=== PATIENT | male | born 1990 | race Caucasian/White ===

== ENCOUNTER 2023-12-24 13:08 | Inpatient (IN) | payer OTHER ==
[2023-12-24 13:51] VITALS: BMI 18.8
[2023-12-24] MEDS ORDERED: DICYCLOMINE HCL 10 MG CAPSULE PO PRN (15:43)
[2023-12-24] MEDS ORDERED: POLYETHYLENE GLYCOL (HEALTHYLAX) 3350 17 GM PACKET PO PRN (15:43)
[2023-12-24] MEDS ORDERED: MAG HYDROX/AL HYDROX/SIMETH 30 ML UNIT-DOSE CUP PO PRN (15:43)
[2023-12-24] MEDS ORDERED: ACETAMINOPHEN 325 MG TABLET (FP) PO PRN (15:43)
[2023-12-24] MEDS ORDERED: BENZOCAINE/MENTHOL (CHLORASEPTIC ) LOZENGE MM PRN (15:43)
[2023-12-24] MEDS ORDERED: MAGNESIUM HYDROX 2400MG/30ML ORAL SUSPENSION 30 ML CUP PO PRN (15:43)
[2023-12-24] MEDS ORDERED: NALOXONE (NARCAN) HCL 4 MG/0.1 ML SPRAY NS PRN (15:43)
[2023-12-24] MEDS ORDERED: BENZONATATE 200 MG CAPSULE PO PRN (15:43)
[2023-12-24] MEDS ORDERED: NALOXONE HCL 0.4 MG/ML VIAL IM PRN (15:43)
[2023-12-24] MEDS ORDERED: guaiFENesin 600 MG TABLET.ER (FP) PO PRN (15:43)
[2023-12-24] MEDS ORDERED: BISMUTH SUBSALICYLATE 524 MG/30 ML PO PRN (15:43)
[2023-12-24] MEDS ORDERED: ONDANSETRON *ODT* 4 MG TABLET SL PRN (15:43)
[2023-12-24] MEDS ORDERED: LOPERAMIDE HCL 2 MG CAPSULE PO PRN (15:43)
[2023-12-24] MEDS ORDERED: methaDONE HCL 10 MG TABLET PO PRN (17:43)
[2023-12-24] MEDS ORDERED: methaDONE HCL 10 MG TABLET (FOR DETOX USE ONLY) ONE (17:59)
[2023-12-24] MEDS: methaDONE HCL 10 MG TABLET PO ONE (18:02)
[2023-12-24] MEDS ORDERED: cloNIDine HCL 0.1 MG TABLET ONE (18:03)
[2023-12-24] MEDS: cloNIDine HCL 0.1 MG TABLET PO SCH (18:04)
[2023-12-25] MEDS: MELATONIN 5 MG TABLETS PO SCH (00:33)
[2023-12-25] MEDS: THIAMINE 100 MG TABLET PO SCH (00:33)
[2023-12-25] MEDS: PRENATAL VITAMINS W/ FOLIC ACID TABLET (FP) PO SCH (09:38)
[2023-12-25] MEDS: methaDONE 40 MG, methaDONE 10 MG PO ONE (09:38)
[2023-12-25 13:52] LABS: HEMATOCRIT 40.7 % (35.4-49); HEMOGLOBIN 13.8 GM/dL (11.7-16.9); MCH 30.8 pg (25.7-33.7); MEAN CELL VOLUME 90.6 fl (80-96); MEAN PLT VOLUME 6.6 fl (7.5-11.1); PLATELET COUNT 424 10^3/uL (134-434); RBC 4.49 M/mm3 (4.00-5.60); RDW 16.4 % (11.9-15.9); WHITE BLOOD COUNT 9.5 K/mm3 (4.0-10.0)
[2023-12-25 14:17] LABS: POTASSIUM 3.7 mmol/L (3.5-5.1)
[2023-12-25 14:19] LABS: CALCIUM 9.3 mg/dL (8.5-10.1)
[2023-12-25 14:20] LABS: ALBUMIN 3.6 g/dl (3.4-5.0)
[2023-12-25 14:23] LABS: CREATININE 0.7 mg/dL (0.55-1.3)
[2023-12-25 14:24] LABS: BILIRUBIN,TOTAL 0.6 mg/dL (0.2-1); TOT PROT 7.4 g/dl (6.4-8.2)
[2023-12-26] MEDS ORDERED: cloNIDine HCL 0.1 MG TABLET PO PRN
[2023-12-26] MEDS: methaDONE 40 MG, methaDONE 20 MG PO ONE (10:30)
[2023-12-26] MEDS: hydrOXYzine PAMOATE 25 MG CAPSULE (FP) PO PRN (10:31)
[2023-12-26] MEDS: IBUPROFEN 600 MG TABLET (FP) PO PRN (17:18)
[2023-12-26] MEDS: NICOTINE POLACRILEX 4 MG GUM BUC PRN (17:19)
[2023-12-27] MEDS: methaDONE 40 MG, methaDONE 30 MG PO ONE (09:17)
[2023-12-28] MEDS: methaDONE HCL 40 MG DISPERSABLE TABLET PO ONE (09:42)
[2023-12-29] MEDS: methaDONE 80 MG, methaDONE 10 MG PO ONE (09:58)
[2023-12-29] MEDS: METHOCARBAMOL 500 MG TABLET PO PRN (21:59)
[2023-12-30] MEDS: methaDONE 80 MG, methaDONE 10 MG PO ONE (08:57)
[2023-12-30] MEDS: IBUPROFEN 400 MG TABLET (FP) PO PRN (22:32)
[2023-12-31] MEDS: methaDONE 80 MG, methaDONE 10 MG PO ONE (11:28)
[2023-12-31 12:49] VITALS: BP 131/83; PULSE 74; RESP 16; TEMP 97.8
== END 2023-12-31 13:15 | disposition other institution (70) | DRG 773 ==
LOC: YASAS 13:08 → Y6N 17:48
PROVIDERS: ADMIT Allergy & Immunology; ATTEND Surgery
PROC: HZ2ZZZZ Detoxification Services for Substance Abuse Treatment (ICD-10-PCS; principal; 2023-12-24)
DX: F11.23 Opioid dependence with withdrawal (principal); F17.210 Nicotine dependence, cigarettes, uncomplicated; Z86.19 Personal history of other infectious and parasitic diseases; Z59.02 Unsheltered homelessness
CPT/HCPCS: 36415; 80053; 80305; 80307; 83036; 85027; 86593; 86780; 87811; 93005; 93010

== ENCOUNTER 2023-12-31 13:42 | Inpatient (IN) | payer OTHER ==
[2023-12-31] MEDS ORDERED: ACETAMINOPHEN 325 MG TABLET (FP) PO PRN (15:55)
[2023-12-31] MEDS ORDERED: MAGNESIUM HYDROX 2400MG/30ML ORAL SUSPENSION 30 ML CUP PO PRN (15:55)
[2023-12-31] MEDS ORDERED: NALOXONE HCL 0.4 MG/ML VIAL IVPUSH PRN (15:55)
[2023-12-31] MEDS ORDERED: LOPERAMIDE HCL 2 MG CAPSULE PO PRN (15:55)
[2023-12-31] MEDS ORDERED: IBUPROFEN 600 MG TABLET (FP) PO PRN (15:55)
[2023-12-31] MEDS ORDERED: BENZONATATE 200 MG CAPSULE PO PRN (15:55)
[2023-12-31] MEDS ORDERED: MAG HYDROX/AL HYDROX/SIMETH 30 ML UNIT-DOSE CUP PO PRN (15:55)
[2023-12-31] MEDS ORDERED: NALOXONE (NARCAN) HCL 4 MG/0.1 ML SPRAY NS PRN ×2 (15:55→15:56)
[2023-12-31] MEDS ORDERED: IBUPROFEN 400 MG TABLET (FP) PO PRN (15:55)
[2023-12-31] MEDS ORDERED: POLYETHYLENE GLYCOL (HEALTHYLAX) 3350 17 GM PACKET PO PRN (15:55)
[2023-12-31] MEDS ORDERED: guaiFENesin 600 MG TABLET.ER (FP) PO PRN (15:55)
[2023-12-31] MEDS ORDERED: BENZOCAINE/MENTHOL (CHLORASEPTIC ) LOZENGE MM PRN (15:55)
[2023-12-31] MEDS: NICOTINE POLACRILEX 4 MG GUM BUC PRN (17:26)
[2023-12-31] MEDS: hydrOXYzine PAMOATE 25 MG CAPSULE (FP) PO PRN (21:08)
[2023-12-31] MEDS: THIAMINE 100 MG TABLET PO SCH (21:08)
[2023-12-31] MEDS: MELATONIN 5 MG TABLETS PO SCH (21:08)
[2023-12-31] MEDS: METHOCARBAMOL 500 MG TABLET PO PRN (21:09)
[2024-01-01] MEDS: methaDONE 80 MG, methaDONE 10 MG PO SCH (05:54)
[2024-01-01] MEDS ORDERED: methaDONE HCL 10 MG TABLET PO SCH (06:00)
[2024-01-01] MEDS: NICOTINE POLACRILEX 4 MG LOZENGE BC PRN (10:07)
[2024-01-01] MEDS: PRENATAL VITAMINS W/ FOLIC ACID TABLET (FP) PO SCH (10:07)
[2024-01-01] MEDS: NICOTINE 21 MG/24 HOURS TOPICAL PATCH TD SCH (10:07)
[2024-01-02] MEDS: methaDONE 80 MG, methaDONE 10 MG PO SCH (09:40)
[2024-01-08 06:52] VITALS: TEMP 97.8
[2024-01-08 09:20] VITALS: BP 144/84; PULSE 89; RESP 18
== END 2024-01-08 13:35 | disposition home or self-care (01) | DRG 772 ==
LOC: YASAS 13:42 → Y3W 13:44
PROVIDERS: ADMIT Psychiatry & Neurology Pain Medicine; ATTEND Psychiatry & Neurology Pain Medicine
PROC: HZ42ZZZ Group Counseling for Substance Abuse Treatment, Cognitive-Behavioral (ICD-10-PCS; principal; 2023-12-31)
DX: F11.20 Opioid dependence, uncomplicated (principal); F17.210 Nicotine dependence, cigarettes, uncomplicated
CPT/HCPCS: 82962

== ENCOUNTER 2024-02-16 12:31 | Inpatient (IN) | payer OTHER ==
[2024-02-16 13:15] VITALS: BMI 20.6
[2024-02-16] MEDS ORDERED: LOPERAMIDE HCL 2 MG CAPSULE PO PRN (14:53)
[2024-02-16] MEDS ORDERED: IBUPROFEN 400 MG TABLET (FP) PO PRN (14:53)
[2024-02-16] MEDS ORDERED: MAG HYDROX/AL HYDROX/SIMETH 30 ML UNIT-DOSE CUP PO PRN (14:53)
[2024-02-16] MEDS ORDERED: METHOCARBAMOL 500 MG TABLET PO PRN (14:53)
[2024-02-16] MEDS ORDERED: MAGNESIUM HYDROX 2400MG/30ML ORAL SUSPENSION 30 ML CUP PO PRN (14:53)
[2024-02-16] MEDS ORDERED: NALOXONE (NARCAN) HCL 4 MG/0.1 ML SPRAY NS PRN (14:53)
[2024-02-16] MEDS ORDERED: IBUPROFEN 600 MG TABLET (FP) PO PRN (14:53)
[2024-02-16] MEDS ORDERED: ACETAMINOPHEN 325 MG TABLET (FP) PO PRN (14:53)
[2024-02-16] MEDS ORDERED: BENZOCAINE/MENTHOL (CHLORASEPTIC ) LOZENGE MM PRN (14:53)
[2024-02-16] MEDS ORDERED: NALOXONE HCL 0.4 MG/ML VIAL IVPUSH PRN (14:53)
[2024-02-16] MEDS ORDERED: P-EPHED 60MG/TRIPROLIDI 2.5MG TABLET PO PRN (14:53)
[2024-02-16] MEDS ORDERED: POLYETHYLENE GLYCOL (HEALTHYLAX) 3350 17 GM PACKET PO PRN (14:53)
[2024-02-16] MEDS ORDERED: NICOTINE POLACRILEX 2 MG LOZENGE BC PRN (14:53)
[2024-02-16] MEDS ORDERED: BENZONATATE 200 MG CAPSULE PO PRN (14:53)
[2024-02-16] MEDS ORDERED: guaiFENesin 600 MG TABLET.ER (FP) PO PRN (14:53)
[2024-02-16] MEDS: MELATONIN 5 MG TABLETS PO SCH (21:27)
[2024-02-16] MEDS: THIAMINE 100 MG TABLET PO SCH (21:27)
[2024-02-17] MEDS: hydrOXYzine PAMOATE 25 MG CAPSULE (FP) PO PRN (06:58)
[2024-02-17] MEDS: PRENATAL VITAMINS W/ FOLIC ACID TABLET (FP) PO SCH (10:58)
[2024-02-17] MEDS: methaDONE HCL 10 MG TABLET PO ONE (11:02)
[2024-02-17] MEDS: MIRTAZAPINE 15 MG TABLET (FP) PO SCH (21:26)
[2024-02-18] MEDS: methaDONE 80 MG, methaDONE 20 MG PO SCH (05:33)
[2024-02-18] MEDS ORDERED: METHADONE PO SCH (06:00)
[2024-02-19 11:22] LABS: BASO % 0.4 % (0-2.0); EOS % 2.7 % (0-4.5); HEMOGLOBIN 13.5 GM/dL (11.7-16.9); LYMPH % 37.2 % (8-40); MCH 30.7 pg (25.7-33.7); MCHC 33.8 g/dl (32.0-35.9); MEAN CELL VOLUME 90.7 fl (80-96); MEAN PLT VOLUME 6.5 fl (7.5-11.1); MONO % 10.8 % (3.8-10.2); NEUT % 48.9 % (42.8-82.8); PLATELET COUNT 400 10^3/uL (134-434); RBC 4.41 M/mm3 (4.00-5.60); RDW 16.7 % (11.9-15.9); WHITE BLOOD COUNT 3.4 K/mm3 (4.0-10.0)
[2024-02-19 13:27] LABS: POTASSIUM 3.7 mmol/L (3.5-5.1)
[2024-02-19 13:28] LABS: CALCIUM 9.4 mg/dL (8.5-10.1)
[2024-02-19 13:29] LABS: ALBUMIN 3.8 g/dl (3.4-5.0); BLOOD UREA NITROGEN 15.2 mg/dL (7-18); MAGNESIUM 2.2 mg/dL (1.8-2.4)
[2024-02-19 13:32] LABS: CREATININE 0.8 mg/dL (0.55-1.3)
[2024-02-19 13:33] LABS: BILIRUBIN,TOTAL 0.5 mg/dL (0.2-1)
[2024-02-19 13:34] LABS: TOT PROT 7.6 g/dl (6.4-8.2)
[2024-02-20] MEDS: NICOTINE POLACRILEX 2 MG GUM BUC PRN (12:08)
[2024-02-25] MEDS: NICOTINE POLACRILEX 4 MG GUM BUC PRN (21:17)
[2024-02-26 06:31] VITALS: BP 121/72; PULSE 63; RESP 16; TEMP 97.8
[2024-02-26] MEDS: NALOXONE (NYS OPIOID OVERDOSE PROGRAM) 4 MG/0.1 ML SPRAY NS SCH (14:48)
== END 2024-02-26 15:35 | disposition home or self-care (01) | DRG 772 ==
LOC: YASAS 12:31 → Y3W 15:35
PROVIDERS: ADMIT Allergy & Immunology; ATTEND Psychiatry & Neurology Pain Medicine
PROC: HZ42ZZZ Group Counseling for Substance Abuse Treatment, Cognitive-Behavioral (ICD-10-PCS; principal; 2024-02-16)
DX: F11.20 Opioid dependence, uncomplicated (principal); F14.20 Cocaine dependence, uncomplicated; F17.210 Nicotine dependence, cigarettes, uncomplicated; F19.280 Other psychoactive substance dependence with psychoactive substance-induced anxiety disorder; F19.282 Other psychoactive substance dependence with psychoactive substance-induced sleep disorder
CPT/HCPCS: 36415; 80053; 80305; 80307; 82652; 83735; 85025; 87811